=== PATIENT | male | born 1955 | race Caucasian/White ===

== ENCOUNTER 2017-08-19 06:41 | Day surgery (SDC) | payer OTHER ==
[2017-08-19] MEDS ORDERED: Sodium Chloride 0.9% 10 ML Syringe FLUSH PRN (07:00)
[2017-08-19] MEDS ORDERED: Lactated Ringers 1,000 ML IV SCH (07:00)
[2017-08-19] MEDS ORDERED: fentaNYL 100 MCG/2 ML SDV ONE (07:50)
[2017-08-19] MEDS ORDERED: Propofol 200 MG/20 ML SDV ONE (07:50)
[2017-08-19] MEDS ORDERED: Simethicone Drops 40 MG/0.6 ML 30 ML Bottle ONE (08:16)
--- NOTE | 2017-08-19 14:41 | OR ---
PREOPERATIVE DIAGNOSIS: Positive FIT test. POSTOPERATIVE DIAGNOSIS: Colon polyps x2. PROCEDURE PROPOSED: Total flexible colonoscopy. PROCEDURE DONE: Total flexible colonoscopy with polypectomy x2. INDICATION: This is a 61-year-old gentleman, who comes in for evaluation due to having a recent positive FIT test on annual exam. He does have a history of having had 1 done about 20 years ago and did have a few polyps, but they were not precancerous polyps. He denies any family history of colon cancer or polyps. TECHNIQUE: The patient was brought to the endoscopy suite, placed in left lateral decubitus position. He was sedated per RNFA with propofol. The flexible video colonoscope was then passed transanally and under visualization advanced to the cecum. Examination revealed a normal cecal area. In the hepatic flexure area at about 80 cm, there was an adenomatous type polyp removed with 2 applications of the hot snare technique and then 2 pieces were retrieved with suction. A good removal was obtained. The transverse colon was unremarkable as well as the descending colon. In the sigmoid colon, there was no evidence of any diverticulosis, but at 20 cm from anal verge, there was a small polyp removed with 2 bites of the cold biopsy forceps and submitted for pathologic examination. The remainder of the rectosigmoid was normal. The scope was then withdrawn. He tolerated the procedure well. FINAL IMPRESSION: Colonic polyps x2 at 80 and 20 cm removed. PLAN: He will be sent a letter with pathology report. If these are adenomatous polyps, I feel he should have a 5-year followup exam. SCM: 08/19/2017 08:19:36 MODL: 08/19/2017 14:33:47 /[id number]
== END 2017-08-19 09:26 | disposition home or self-care (01) ==
LOC: VM.SDS 06:41
PROVIDERS: ATTEND Surgery
DX: D12.3 Benign neoplasm of transverse colon (principal); D12.5 Benign neoplasm of sigmoid colon; K57.30 Diverticulosis of large intestine without perforation or abscess without bleeding; I10 Essential (primary) hypertension; E78.1 Pure hyperglyceridemia; G47.33 Obstructive sleep apnea (adult) (pediatric); N40.1 Benign prostatic hyperplasia with lower urinary tract symptoms; Z79.82 Long term (current) use of aspirin; Z79.899 Other long term (current) drug therapy; Z90.49 Acquired absence of other specified parts of digestive tract; Z98.890 Other specified postprocedural states; Z86.010 Personal history of colon polyps
CPT/HCPCS: J2704; J3010; J7120

== ENCOUNTER 2020-05-12 09:01 | Emergency (ER) | payer MEDICARE ==
--- NOTE | 2020-05-12 09:37 | EDM.PDOC ---
ED HPI GENERAL MEDICAL PROBLEM - General Chief Complaint: Genitourinary Problem Stated Complaint: cath. is blocked Time Seen by Provider: 05/12/20 09:27 Source of Information: Reports: Patient, Family - History of Present Illness INITIAL COMMENTS - FREE TEXT/NARRATIVE: Sal is a 64 y/o male who comes to the ER with accompanied by his . He awoke this AM and his leg bag was not draining. He denies any pain. He has had this emerson in for about 3 weeks now. He has been seen by [facility] in [place] and is planning an upcoming surgery in a couple weeks for BPH. No fevers. The emerson was draining fine yesterday. He is also voiding around the catheter. - Related Data Allergies Allergy/AdvReac Type Severity Reaction Status Date / Time No Known Allergies Allergy Verified 05/12/20 09:18 Home Meds: Home Meds Aspirin 1 tab PO DAILY 08/18/17 [History] ClonazePAM [KlonoPIN] 1 tab PO BEDTIME 08/18/17 [History] Ibuprofen [Advil] 2 tab PO 5XDAY PRN 08/18/17 [History] Lisinopril 1 tab PO DAILY 08/18/17 [History] Melatonin 1 cap PO BEDTIME 08/18/17 [History] Tamsulosin [Flomax] 1 cap PO DAILY 08/18/17 [History] amLODIPine [Norvasc] 1 tab PO DAILY 08/18/17 [History] Cyanocobalamin (Vitamin B-12) [Vitamin B-12] 1,000 unit PO DAILY 08/19/17 [History] Ergocalciferol (Vitamin D2) [Vitamin D2] 2,000 unit PO DAILY 08/19/17 [History] Multivitamin [Multivitamins] 1 tab PO DAILY 08/19/17 [History] Betamethasone/Clotrimazole [Lotrisone] 1 applic TOP BID #45 tube 05/12/20 [Rx] Past Medical History HEENT History: Reports: None Cardiovascular History: Reports: High Cholesterol, Hypertension Respiratory History: Reports: Sleep Apnea Gastrointestinal History: Reports: Colon Polyp Genitourinary History: Reports: BPH Musculoskeletal History: Reports: None Neurological History: Reports: None Psychiatric History: Reports: None Endocrine/Metabolic History: Reports: Other (See Below) Other Endocrine/Metabolic History: abnormal glucose Hematologic History: Reports: None Immunologic History: Reports: None Oncologic (Cancer) History: Reports: None Dermatologic History: Reports: None - Past Surgical History Head Surgeries/Procedures: Reports: None HEENT Surgical History: Reports: None Cardiovascular Surgical History: Reports: None GI Surgical History: Reports: Cholecystectomy, Colonoscopy Musculoskeletal Surgical History: Reports: None Review of Systems - Review of Systems Review Of Systems: See Below Constitutional: Reports: No Symptoms Eyes: Reports: No Symptoms Ears: Reports: No Symptoms Nose: Reports: No Symptoms Mouth/Throat: Reports: No Symptoms Respiratory: Reports: No Symptoms Cardiovascular: Reports: No Symptoms GI/Abdominal: Reports: No Symptoms Genitourinary: Reports: Other (Emerson not draining.) Musculoskeletal: Reports: No Symptoms Skin: Reports: No Symptoms Neurological: Reports: No Symptoms Psychiatric: Reports: No Symptoms ED EXAM, GENERAL - Physical Exam Exam: See Below General Appearance: Alert, WD/WN, No Apparent Distress (Elderly male.) Ears: Hearing Grossly Normal Nose: Normal Inspection Throat/Mouth: Normal Lips, Normal Teeth, Normal Voice Head: Atraumatic, Normocephalic Respiratory/Chest: No Respiratory Distress, Lungs Clear, Normal Breath Sounds, Chest Non-Tender Cardiovascular: Normal Peripheral Pulses, Regular Rate, Rhythm GI/Abdominal: Normal Bowel Sounds, Soft, Non-Tender, Other (Bladder Hbim=838hh) Rectal (Males) Exam: Deferred Back Exam: Normal Inspection, Paraspinal Tenderness Extremities: Normal Range of Motion, Normal Capillary Refill, Other (Note erythematous rash to right inner thigh with satellite lesions.) Neurological: Alert, Oriented, CN II-XII Intact, Normal Cognition Psychiatric: Normal Affect, Normal Mood Skin Exam: Warm, Dry, Intact, Normal Color Lymphatic: No Adenopathy Course - Vital Signs Text/Narrative:: 0927 The patient was seen by the TELEPHONE SUPERVISOR. Bladder scan was done by RN. Emerson was irrigated. The emerson was changed per RN and noted dark conor urine in the leg bag. Patient was given discharge instructions and left the ER with his in stable condition. Last Recorded V/S: Last Vital Signs Temp 36.4 C 05/12/20 09:10 Pulse 99 05/12/20 09:10 Resp 14 05/12/20 09:10 BP 129/84 05/12/20 09:10 Pulse Ox 96 05/12/20 09:10 Departure - Departure Time of Disposition: 09:59 Disposition: Home, Self-Care 01 Condition: Good Clinical Impression: Benign prostatic hyperplasia with lower urinary tract symptoms Qualifiers: Lower urinary tract symptom detail: urinary obstruction Qualified Code(s): N40.1 - Benign prostatic hyperplasia with lower urinary tract symptoms; N13.8 - Other obstructive and reflux uropathy Contact dermatitis due to adhesives Qualifiers: Contact dermatitis type: unspecified Qualified Code(s): L23.1 - Allergic contact dermatitis due to adhesives - Discharge Information *PRESCRIPTION DRUG MONITORING PROGRAM REVIEWED*: Not Applicable *COPY OF PRESCRIPTION DRUG MONITORING REPORT IN PATIENT BRENT: Not Applicable Prescriptions: Betamethasone/Clotrimazole [Lotrisone] 1 applic TOP BID #45 tube Instructions: Benign Prostatic Hyperplasia, Indwelling Urinary Catheter Care, Adult, Fjop-uv-[id number] Additional Instructions: -Continue emerson cares at home -Continue current medications -Keep follow up appts with Urology in [place] -Use Lotrisone to the rashed area on your thigh region. Call the Urology office to see where you can obtain emerson cath holders to avoid using duct tape on your skin. -Return as needed to the ER. Sepsis Event Note (ED) - Evaluation Sepsis Screening Result: No Definite Risk - Focused Exam Vital Signs: Vital Signs Temp Pulse Resp BP Pulse Ox 05/12/20 09:10 36.4 C 99 14 129/84 96
== END 2020-05-12 10:14 | disposition home or self-care (01) ==
LOC: VM.ED 09:01
DX: N40.1 Benign prostatic hyperplasia with lower urinary tract symptoms (principal); N13.8 Other obstructive and reflux uropathy; L23.1 Allergic contact dermatitis due to adhesives; I10 Essential (primary) hypertension; Z79.899 Other long term (current) drug therapy
CPT/HCPCS: 51702; 51798; 99283-25; 99284